=== PATIENT | male | born 1995 | race Caucasian/White ===

== ENCOUNTER 2018-05-23 16:27 | Emergency (ER) | payer BC ==
[~2018-05-23] VITALS: Ht 172.7 cm; Wt 63.5 kg
[2018-05-23 16:33] VITALS: BP_SYST 124
[2018-05-23] MEDS ORDERED: MAGNESIUM CITRATE 300 ML ORAL SOLUTION PO ONE (17:45)
[2018-05-23 17:50] VITALS: BP_SYST 120
== END 2018-05-23 17:50 | disposition home or self-care (01) ==
LOC: SED 16:27
DX: K59.00 Constipation, unspecified (principal)
CPT/HCPCS: 71045; 74018; 99284